=== PATIENT | female | born 2000 | race Caucasian/White ===

== ENCOUNTER 2022-04-13 22:30 | Emergency (ER) | payer SELFPAY ==
[~2022-04-13] VITALS: Ht 170.2 cm; Wt 60.0 kg
[2022-04-13 23:12] VITALS: BP 155/94
== END 2022-04-13 23:57 ==
LOC: EDBD 22:30 → ER 22:46
DX: Z04.1 Encounter for examination and observation following transport accident (principal); V49.69XA Unspecified car occupant injured in collision with other motor vehicles in traffic accident, initial encounter; Y93.89 Activity, other specified; Y92.89 Other specified places as the place of occurrence of the external cause; Y99.8 Other external cause status